=== PATIENT | female | born 1965 | race Caucasian/White ===

== ENCOUNTER 2017-07-17 09:55 | Emergency (ER) | payer MEDICAID ==
[2017-07-17 10:02] VITALS: RESP 18; TEMP 97
[2017-07-17 10:55] VITALS: BP 158/81; PULSE 75
--- NOTE | 2017-07-17 10:55 | ED ---
General Adult HPI - General Chief complaint: Extremity Problem,Nontraumatic Stated complaint: RT KNEE AND CALF PAIN Source: patient, family, RN notes reviewed Mode of arrival: ambulatory Limitations: no limitations - History of Present Illness Initial comments: Chief complaint and history of present illness a 51-year-old female with a complaint of frequent calf spasms and pain. Afraid she might have a DVT. She also has been having discomfort through the right knee. This is been constant no injuries. - Related Data Home Medications Medication Instructions Recorded Confirmed Acetaminophen-Codeine 300-30mg 1 tab PO ONCE PRN 07/17/17 07/17/17 [Tylenol #3] Ibuprofen [Motrin] 200 - 400 mg PO Q6H PRN 07/17/17 07/17/17 Previous Rx's Medication Instructions Recorded Ibuprofen [Motrin] 600 mg PO Q6HR PRN #20 tab 07/17/17 Allergies Allergy/AdvReac Type Severity Reaction Status Date / Time No Known Allergies Allergy Verified 07/17/17 10:32 Review of Systems ROS Statement: Those systems with pertinent positive or pertinent negative responses have been documented in the HPI. Review of systems no complaint of headache chest pain shortness breath GI/ problems. All systems reviewed. Past medical problems significant for tubal ligation. Patient denies history of high blood pressure that was elevated today this will be repeated. Patient states she's been having some arthritic changes. Patient smokes encouraged to stop occasional alcohol use. ROS Other: All systems not noted in ROS Statement are negative. Past Medical History Past Medical History: No Reported History History of Any Multi-Drug Resistant Organisms: None Reported Past Surgical History: Tubal Ligation Past Psychological History: No Psychological Hx Reported Smoking Status: Current every day smoker Past Alcohol Use History: Occasional Past Drug Use History: None Reported General Exam - General Exam Comments Initial Comments: General: The patient is awake and alert, complaining of discomfort to the right knee specifically popliteal area as well as spasms to her calf. Vital signs temp 97.0 pulse 85 respiratory rate 18 pulse ox 99% room air blood pressure initially 175/106 repeated to be 158/81. Eye: Pupils are equal, Neck: The neck is supple, No complaint of chest pain shortness breath GI/ problems. Back: No back pain Musculoskeletal: Negative Homans sign, she does complain discomfort to the right calf and right popliteal region. Knee no pain with varus progress or drawer testing. No swelling noted no bruising noted. Neurovascular status of the foot is intact. Neurological: No neuro deficits Skin: No rash, no bruising. Limitations: no limitations Course Vital Signs 07/17/17 07/17/17 10:00 10:54 Temperature 97.0 F L Pulse Rate 85 75 Respiratory 18 18 Rate Blood Pressure 175/106 158/81 O2 Sat by Pulse 99 96 Oximetry Medical Decision Making - Medical Decision Making X-ray of the right knee was done and reviewed by radiologist's his final impression is no abnormalities evident. As read by Dr. Myers Disposition Clinical Impression: Chronic pain of right knee, Ortega's cyst of knee Disposition: HOME SELF-CARE Condition: Fair Instructions: Naproxen (By mouth), Arthritis (ED), Bakers Cyst (ED) Additional Instructions: Take ibuprofen for pain or Aleve as directed follow with family physician as needed. Prescriptions: Ibuprofen [Motrin] 600 mg PO Q6HR PRN #20 tab PRN Reason: Pain Referrals: None,Stated [Primary Care Provider] - 1-2 days Time of Disposition: 12:01
--- NOTE | 2017-07-17 11:03 | XR ---
Right knee HISTORY: Right knee pain 3 views of the right knee No comparisons Bone mineralization, joint spaces and alignment are maintained. There is no joint effusion. No fractu re or dislocation. IMPRESSION: No abnormalities evident.
--- NOTE | 2017-07-17 12:08 | US ---
EXAMINATION TYPE: US venous doppler duplex LE RT DATE OF EXAM: 07/17/2017 11:51 AM COMPARISON: NONE CLINICAL HISTORY: Pain, right calf, right popliteal area. EC patient with right calf pain x 1 year, w ithout swelling. SIDE PERFORMED: Right TECHNIQUE: The lower extremity deep venous system is examined utilizing real time linear array sonog chetan with graded compression, doppler sonography and color-flow sonography. VESSELS IMAGED: Common Femoral Vein Deep Femoral Vein Greater Saphenous Vein * Femoral Vein Popliteal Vein Small Saphenous Vein * Proximal Calf Veins (* superficial vessels) Right Leg: Echoes are noted at the hallux at mid Right Femoral Vein. Examination is negative for DVT . Right Popliteal Fossa Cyst is seen medially = 2.6 x 2.2 x 0.8cm. IMPRESSION: 1. No sonographic evidence of deep venous thrombosis of the right lower extremity. 2. Incidental note of a 2.6 cm popliteal cyst.
== END 2017-07-17 12:21 | disposition home or self-care (01) ==
LOC: EC 09:55
DX: M25.561 Pain in right knee (principal); G89.29 Other chronic pain; M71.21 Synovial cyst of popliteal space [Baker], right knee; F17.200 Nicotine dependence, unspecified, uncomplicated
CPT/HCPCS: 99284

== ENCOUNTER → 2017-08-16 | Outpatient (CLI) | payer MEDICAID ==
--- NOTE | 2017-08-16 08:47 | MR ---
EXAMINATION TYPE: MR knee RT wo con DATE OF EXAM: 08/16/2017 COMPARISON: NONE HISTORY: Right knee pain TECHNIQUE: Multiplanar, multisequence imaging of the right knee is performed without IV contrast. FINDINGS: MEDIAL MENISCUS: There is a linear tear involving the posterior horn of the medial meniscus. LATERAL MENISCUS: Anterior and posterior horns are intact without tear. CRUCIATE LIGAMENTS: The anterior and posterior cruciate ligaments are intact and unremarkable. COLLATERAL LIGAMENTS: The medial collateral ligament and lateral collateral ligament complex are inta ct and unremarkable. EXTENSOR MECHANISM: Visualized quadriceps and patellar tendons are intact. Edema within the suprapate llar bursa. EFFUSION: No significant suprapatellar joint effusion. POPLITEAL CYST: There is a 1.5 x 1 x 3 cm popliteal fossa cyst. TRICOMPARTMENT SPACES: Mild to moderate narrowing the medial compartment of the knee joint. No erosiv e changes. Grade II chondromalacia medial patellar facet no free fragment. BONE MARROW SIGNAL: No focal abnormal marrow signal is appreciated. IMPRESSION: 1. Osteoarthritis with findings suspicious for linear tear posterior horn medial meniscus. 2. Correlate for fat pad impingement syndrome. 3. 1.5 x 1.0 x 3 cm popliteal cyst.
== END | disposition home or self-care (01) ==
LOC: RADMRIMAIN 07:08
PROVIDERS: ATTEND Orthopaedic Surgery
DX: M17.11 Unilateral primary osteoarthritis, right knee (principal); M71.21 Synovial cyst of popliteal space [Baker], right knee

== ENCOUNTER → 2017-12-06 | Outpatient (CLI) | payer MEDICAID ==
[2017-12-06 11:43] LABS: Basophils # (A) 0.1 k/uL (0-0.2); Basophils % (A) 1 %; Eosinophils # (A) 0.3 k/uL (0-0.7); Eosinophils % (A) 3 %; HCT 47.8 % (34.0-46.0); HGB 15.5 gm/dL (11.4-16.0); Lymphocytes % (A) 20 %; MCH 30.6 pg (25.0-35.0); MCHC 32.4 g/dL (31.0-37.0); MCV 94.5 fL (80.0-100.0); Mean Platelet Volume 6.6; Monocytes # (A) 0.5 k/uL (0-1.0); Monocytes % (A) 5 %; Neutrophils # (A) 6.7 k/uL (1.3-7.7); Neutrophils % (A) 68 %; Platelet Count 338 k/uL (150-450); RBC 5.06 m/uL (3.80-5.40); RDW 13.3 % (11.5-15.5); WBC 9.9 k/uL (3.8-10.6)
[2017-12-06 11:55] LABS: Potassium 4.7 mmol/L (3.5-5.1)
--- NOTE | 2017-12-06 13:13 | XR ---
EXAMINATION TYPE: XR chest 2V DATE OF EXAM: 12/06/2017 COMPARISON: 09/27/2013 HISTORY: 52 year-old female presurgical testing TECHNIQUE: Frontal and lateral views FINDINGS: The cardiomediastinal silhouette, aorta, and pulmonary vasculature are within normal limits. Lungs an d pleural spaces are clear. IMPRESSION: No acute cardiopulmonary process.
== END | disposition home or self-care (01) ==
LOC: RADXRMAIN 10:33
PROVIDERS: ATTEND Orthopaedic Surgery
DX: Z01.818 Encounter for other preprocedural examination (principal); M23.91 Unspecified internal derangement of right knee; Z01.812 Encounter for preprocedural laboratory examination
CPT/HCPCS: 36415; 71046; 80051; 85025; 93005

== ENCOUNTER 2017-12-15 08:29 | Day surgery (SDC) | payer MEDICAID ==
[2017-12-07 14:45] VITALS: BMI 27.3
--- NOTE | 2017-12-14 20:36 | HP ---
HISTORY AND PHYSICAL CHIEF COMPLAINT: Right knee pain. 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 She notes she is having giving way along with diffuse pain. She has some night symptoms. She has tried medications in addition to an injection with only partial and temporary relief. She notes the pain limits her normal function and activities. PAST MEDICAL HISTORY: Significant for asthma. PAST SURGICAL HISTORY: Significant for tubal ligation and cholecystectomy. CURRENT MEDICATIONS: Ibuprofen. ALLERGIES: She denies drug allergies. FAMILY HISTORY: Significant for heart disease. SOCIAL HISTORY: Significant for 1 pack per day tobacco use. 16 POINT REVIEW OF SYSTEMS: Otherwise reviewed and is noncontributory. PHYSICAL EXAMINATION: On examination, the patient is approximately 5 foot 7, 175 pounds of mesomorphic habitus. HEENT exam is nonfocal. Neck is supple. She has painless passive motion of the right hip. Straight leg raise is negative. Active motion right knee -6 to 135 degrees of flexion. She has a mild effusion. She is tender about the medial joint line. Collaterals are stable, Melany's negative, Anastasia's elicits medial pain. Her distal neurovascular appears to be intact in the right lower extremity. MRI report from 08/16/2017 of the right knee shows a posterior medial meniscal tear along with degenerative changes involving medial compartment. IMPRESSION: Right knee internal derangement with symptomatic medial meniscal tear. RECOMMENDATIONS: I talked to the patient at length regarding her treatment options. At this point, she is having persistent pain and mechanical symptoms that limit her normal function and activities despite conservative measures. After thorough discussion, she opts to proceed with surgery. We will plan to proceed with arthroscopic evaluation with probable partial medial meniscectomy. We will likely perform as an outpatient procedure. Risks and benefits were discussed at length in layman's terms. MMODL / IJN: [id number] /
[~2017-12-15 08:29] MED LIST: DEXAMETHASONE SOD PHOSPHATE 10 MG/ML 1 ML VIAL IV ONE; LACTATED RINGERS 1,000 ML IV SCH; MIDAZOLAM 2 MG/2 ML VIAL IV PRN; ONDANSETRON 4 MG/2 ML VIAL IVP ONE; SCOPOLAMINE 1.5MG/72HR PATCH TRANSDERM ONE; ceFAZolin IN SWFI 2 GM/20 ML SYRINGE IVP ONE; fentaNYL (PF) 50 MCG/ML 2 ML AMP IV PRN
[2017-12-15] MEDS ORDERED: SUCCINYLCHOLINE CHLORIDE 100 MG/5 ML SYR IV ONE (10:34)
[2017-12-15] MEDS ORDERED: LIDOCAINE 1% INJ 10MG/ML (20 ML MDV) ONE (10:34)
[2017-12-15] MEDS ORDERED: PROPOFOL 10 MG/ML 20 ML VIAL IV ONE (10:34)
[2017-12-15] MEDS ORDERED: MIDAZOLAM 2 MG/2 ML VIAL ONE (10:34)
[2017-12-15] MEDS ORDERED: fentaNYL (PF) 50 MCG/ML 2 ML AMP ONE (10:34)
--- NOTE | 2017-12-15 11:19 | P.OP ---
Date of Procedure: 12/15/17 Preoperative Diagnosis: Right knee internal derangement Postoperative Diagnosis: Right knee posterior medial meniscal tear/middle one third lateral meniscal tear /grade 3 chondral injury distal lateral portion of the medial femoral condyle Procedure(s) Performed: Right knee arthroscopic partial medial meniscectomy/partial lateral meniscectomy /medial femoral chondrectomy Anesthesia: KATHERINE Surgeon: Wesly Melendez Estimated Blood Loss (ml): 10 Pathology: none sent Condition: stable Disposition: PACU Indications for Procedure: The patient is a 52-year-old female who presents with progressive right knee pain and mechanical symptoms despite conservative measures. A discussion of the risks and benefits of operative intervention versus continued conservative measures was made with patient. She opted to proceed with surgery. Operative risks to include infection, neurovascular injury, development of blood clots, possible incomplete resolution of symptoms, possible worsening symptoms and need for subsequent procedures was discussed. Informed consent was obtained. Operative Findings: As below Description of Procedure: The patient was brought to the operating room, and after induction of general anesthesia examined the right knee. Collaterals were stable, Melany was negative, and posterior drawer was negative. The right lower extremity was prepped and draped in normal fashion. A superior lateral portal was made through a 3 mm skin incision superior and lateral to the patella. This was used for outflow. A lateral portal was made through a 5 mm vertical skin incision lateral to the patella tendon above the joint line. Diagnostic arthroscopy was performed. A medial portal was made through a similar incision medial to the patellar tendon above the joint line. On inspection the medial compartment, a grade 3 chondral injury involving the distal lateral portion of the medial femoral condyle was noted. There was a loose small chondral flap debrided back to stable base with a motorized shaver. An oblique tear involving the posterior most aspect of the medial meniscus was noted in the white-white junction. This was debrided back to a stable base with straight baskets. The remainder of the medial meniscus was stable and intact. On inspection of the notch, the anterior cruciate ligament appeared to be intact. On inspection of the lateral compartment, a radial tear involving the middle one third of the lateral meniscus in the white-white junction was noted. This was debrided back to a stable base with straight baskets and a motorized shaver. The remainder of the lateral meniscus was stable and intact. On inspection patellofemoral articulation, there was some mild fibrillation however no loose chondral fragments. The gutters were clear debris. The knee was then thoroughly irrigated. The portals were closed with Steri-Strips. A sterile dressing was applied in addition to a compression stocking. The patient was awoken from general anesthesia and transferred to recovery room in good condition. Blood loss was estimated at 10 mL. No complications were incurred.
[2017-12-15 11:30] VITALS: TEMP 97.5
[2017-12-15 12:09] VITALS: RESP 18
[2017-12-15 12:20] VITALS: BP 135/70; PULSE 67
== END 2017-12-15 12:32 | disposition home or self-care (01) ==
LOC: OR 08:29
PROVIDERS: ATTEND Orthopaedic Surgery
DX: M23.321 Other meniscus derangements, posterior horn of medial meniscus, right knee (principal); M23.41 Loose body in knee, right knee; J45.909 Unspecified asthma, uncomplicated; M23.300 Other meniscus derangements, unspecified lateral meniscus, right knee; Z88.5 Allergy status to narcotic agent; Z72.0 Tobacco use; Z79.1 Long term (current) use of non-steroidal anti-inflammatories (NSAID)
CPT/HCPCS: 29880; J2250; J1100; J2405; J2001; J3010; J0330; J2704; J0690

== ENCOUNTER 2019-02-07 10:10 | Emergency (ER) | payer MEDICAID, OTHER ==
[2019-02-07 10:14] VITALS: RESP 18; TEMP 97.8
[2019-02-07 10:49] LABS: Basophils % (A) 0 %; Eosinophils # (A) 0.2 k/uL (0-0.7); Eosinophils % (A) 2 %; HCT 46.7 % (34.0-46.0); HGB 15.5 gm/dL (11.4-16.0); Lymphocytes # (A) 2.3 k/uL (1.0-4.8); Lymphocytes % (A) 26 %; MCHC 33.1 g/dL (31.0-37.0); MCV 90.6 fL (80.0-100.0); Mean Platelet Volume 7.2; Monocytes # (A) 0.4 k/uL (0-1.0); Monocytes % (A) 5 %; Neutrophils # (A) 5.5 k/uL (1.3-7.7); Neutrophils % (A) 64 %; Platelet Count 359 k/uL (150-450); RBC 5.15 m/uL (3.80-5.40); RDW 13.8 % (11.5-15.5); WBC 8.6 k/uL (3.8-10.6)
--- NOTE | 2019-02-07 10:51 | XR ---
EXAMINATION TYPE: XR chest 2V DATE OF EXAM: 02/07/2019 COMPARISON: Chest x-ray December 06, 2017. HISTORY: History of hypertension with chest pressure and pain for one day. TECHNIQUE: Frontal and lateral views of the chest are obtained. FINDINGS: Overlying EKG leads are seen. There is no focal air space opacity, pleural effusion, or pn eumothorax seen. The cardiac silhouette size is within normal limits. The osseous structures are i ntact. IMPRESSION: No acute process. No significant change from prior.
[2019-02-07 11:00] LABS: ALT 28 U/L (9-52); AST 23 U/L (14-36); Albumin 4.8 g/dL (3.5-5.0); Alkaline Phosphatase 59 U/L (38-126); Anion Gap 9 mmol/L; Blood Urea Nitrogen 12 mg/dL (7-17); Carbon Dioxide 26 mmol/L (22-30); Chloride 106 mmol/L (98-107); Glucose 101 mg/dL (74-99); Lipase 98 U/L (23-300); Magnesium 2.1 mg/dL (1.6-2.3); Potassium 4.3 mmol/L (3.5-5.1); Sodium 141 mmol/L (137-145); Total Bilirubin 0.4 mg/dL (0.2-1.3); Total Protein 8.1 g/dL (6.3-8.2)
[2019-02-07 11:01] LABS: D-Dimer 0.36 mg/L FEU (<0.60); INR 0.9 (<1.2); Prothrombin Time 9.6 sec (9.0-12.0)
[2019-02-07] MEDS ORDERED: SODIUM CHLORIDE 0.9% 1,000 ML IV ONE (11:18)
[2019-02-07] MEDS ORDERED: FAMOTIDINE 20 MG/2 ML VIAL IV STA (11:18)
--- NOTE | 2019-02-07 11:29 | ED ---
General Adult HPI - General Chief complaint: Chest Pain Stated complaint: chest pain Time Seen by Provider: 02/07/19 10:19 Source: patient, RN notes reviewed, old records reviewed Mode of arrival: wheelchair Limitations: no limitations - History of Present Illness Initial comments: 53-year-old female presenting for evaluation of central chest pain. Patient describes pain as dull, center of her chest radiating to the middle of her back. She has no previous history of coronary artery disease, she does have history of elevated blood pressure in the past but is not currently on treatment. She is a current smoker. Denies any extremity pain. Denies nausea vomiting or diaphoresis. She has previous history of gastric reflux status post Emy fund oplication. - Related Data Previous Rx's Medication Instructions Recorded amLODIPine BESYLATE [Norvasc] 5 mg PO DAILY #30 tablet 02/07/19 Allergies Allergy/AdvReac Type Severity Reaction Status Date / Time hydromorphone [From Dilaudid] AdvReac very red Verified 02/07/19 11:12 face Review of Systems ROS Statement: Those systems with pertinent positive or pertinent negative responses have been documented in the HPI. ROS Other: All systems not noted in ROS Statement are negative. Past Medical History Past Medical History: Hypertension History of Any Multi-Drug Resistant Organisms: None Reported Past Surgical History: Cholecystectomy, Tubal Ligation Additional Past Surgical History / Comment(s): Edgar procedure Past Psychological History: No Psychological Hx Reported Smoking Status: Current every day smoker Past Alcohol Use History: Occasional Past Drug Use History: None Reported General Exam Limitations: no limitations General appearance: alert, in no apparent distress Head exam: Present: atraumatic, normocephalic Eye exam: Present: normal appearance, PERRL, EOMI ENT exam: Present: normal exam Neck exam: Present: normal inspection. Absent: tenderness, meningismus Respiratory exam: Present: normal lung sounds bilaterally. Absent: respiratory distress, wheezes Cardiovascular Exam: Present: regular rate, normal rhythm GI/Abdominal exam: Present: soft. Absent: distended, tenderness Extremities exam: Present: normal inspection, normal capillary refill, other (2+ posterior tibial pulses bilaterally, 2+ radial pulses bilaterally). Absent: p edal edema, calf tenderness Neurological exam: Present: alert, oriented X3, CN II-XII intact. Absent: motor sensory deficit Psychiatric exam: Present: normal affect, normal mood Skin exam: Present: warm, dry, intact. Absent: cyanosis, diaphoretic Course Vital Signs 02/07/19 02/07/19 02/07/19 10:12 10:27 10:59 Temperature 97.8 F Pulse Rate 85 77 Respiratory 18 18 Rate Blood Pressure 182/125 181/104 164/100 O2 Sat by Pulse 99 96 Oximetry EKG Findings - EKG Comments: EKG Findings:: EKG: Normal sinus rhythm, possible left atrial enlargement, no ST segment elevation or depression, T waves are upright, rate of 75, AK interval 148, QRS duration 92, QTC 444. Medical Decision Making - Medical Decision Making 53-year-old female presenting with central chest pain, radiating to her back. EKG is negative for ST segment elevation, patient's symptoms 7 present for between 12 and 24 hours. She is a current smoker, hypertensive on initial evaluation. Patient has normal CBC, normal CMP, troponin is negative. CT angiography is obtained, this is negative for dissection, no aortic or abdominal pathology. Given the patient's age and risk factors, I would prefer the patient stay in observation for serial troponins, telemetry, cardiology consultation. Patient declines, prefers outpatient workup. Blood pressure was quite elevated emergency department, will be started on Norvasc, she will keep a long blood pressure so she could follow up with her primary care physician. - Lab Data Result diagrams: 02/07/19 10:23 02/07/19 10:23 Lab Results 02/07/19 02/07/19 02/07/19 Range/Units 10:23 10:23 10:23 WBC 8.6 (3.8-10.6) k/uL RBC 5.15 (3.80-5.40) m/uL Hgb 15.5 (11.4-16.0) gm/dL Hct 46.7 H (34.0-46.0) % MCV 90.6 (80.0-100.0) fL MCH 30.0 (25.0-35.0) pg MCHC 33.1 (31.0-37.0) g/dL RDW 13.8 (11.5-15.5) % Plt Count 359 (150-450) k/uL Neutrophils % 64 % Lymphocytes % 26 % Monocytes % 5 % Eosinophils % 2 % Basophils % 0 % Neutrophils # 5.5 (1.3-7.7) k/uL Lymphocytes # 2.3 (1.0-4.8) k/uL Monocytes # 0.4 (0-1.0) k/uL Eosinophils # 0.2 (0-0.7) k/uL Basophils # 0.0 (0-0.2) k/uL PT 9.6 (9.0-12.0) sec INR 0.9 (<1.2) APTT 26.0 (22.0-30.0) sec D-Dimer 0.36 (<0.60) mg/L FEU Sodium 141 (137-145) mmol/L Potassium 4.3 (3.5-5.1) mmol/L Chloride 106 (98-107) mmol/L Carbon Dioxide 26 (22-30) mmol/L Anion Gap 9 mmol/L BUN 12 (7-17) mg/dL Creatinine 0.55 (0.52-1.04) mg/dL Est GFR (CKD-EPI)AfAm >90 (>60 ml/min/1.73 sqM) Est GFR (CKD-EPI)NonAf >90 (>60 ml/min/1.73 sqM) Glucose 101 H (74-99) mg/dL Calcium 10.0 (8.4-10.2) mg/dL Magnesium 2.1 (1.6-2.3) mg/dL Total Bilirubin 0.4 (0.2-1.3) mg/dL AST 23 (14-36) U/L ALT 28 (9-52) U/L Alkaline Phosphatase 59 (38-126) U/L Troponin I (0.000-0.034) ng/mL NT-Pro-B Natriuret Pep pg/mL Total Protein 8.1 (6.3-8.2) g/dL Albumin 4.8 (3.5-5.0) g/dL Lipase 98 (23-300) U/L 02/07/19 02/07/19 Range/Units 10:23 10:23 WBC (3.8-10.6) k/uL RBC (3.80-5.40) m/uL Hgb (11.4-16.0) gm/dL Hct (34.0-46.0) % MCV (80.0-100.0) fL MCH (25.0-35.0) pg MCHC (31.0-37.0) g/dL RDW (11.5-15.5) % Plt Count (150-450) k/uL Neutrophils % % Lymphocytes % % Monocytes % % Eosinophils % % Basophils % % Neutrophils # (1.3-7.7) k/uL Lymphocytes # (1.0-4.8) k/uL Monocytes # (0-1.0) k/uL Eosinophils # (0-0.7) k/uL Basophils # (0-0.2) k/uL PT (9.0-12.0) sec INR (<1.2) APTT (22.0-30.0) sec D-Dimer (<0.60) mg/L FEU Sodium (137-145) mmol/L Potassium (3.5-5.1) mmol/L Chloride (98-107) mmol/L Carbon Dioxide (22-30) mmol/L Anion Gap mmol/L BUN (7-17) mg/dL Creatinine (0.52-1.04) mg/dL Est GFR (CKD-EPI)AfAm (>60 ml/min/1.73 sqM) Est GFR (CKD-EPI)NonAf (>60 ml/min/1.73 sqM) Glucose (74-99) mg/dL Calcium (8.4-10.2) mg/dL Magnesium (1.6-2.3) mg/dL Total Bilirubin (0.2-1.3) mg/dL AST (14-36) U/L ALT (9-52) U/L Alkaline Phosphatase (38-126) U/L Troponin I <0.012 (0.000-0.034) ng/mL NT-Pro-B Natriuret Pep 81 pg/mL Total Protein (6.3-8.2) g/dL Albumin (3.5-5.0) g/dL Lipase (23-300) U/L Disposition Clinical Impression: Chest pain, Hypertension Disposition: HOME SELF-CARE Instructions (If sedation given, give patient instructions): Chest Pain (ED), Hypertension (ED) Prescriptions: amLODIPine BESYLATE [Norvasc] 5 mg PO DAILY #30 tablet Is patient prescribed a controlled substance at d/c from ED?: No Referrals: None,Stated [Primary Care Provider] - 1-2 days Lissy Weiner MD [STAFF PHYSICIAN] - 1-2 days Time of Disposition: 12:43
--- NOTE | 2019-02-07 12:28 | CT ---
EXAMINATION TYPE: CT angio thor/abd pel aorta DATE OF EXAM: 02/07/2019 COMPARISON: Chest x-ray same date HISTORY: Chest pain CT DLP: 1353.2 mGycm. Automated Exposure Control for Dose Reduction was Utilized. CONTRAST: CT scan of the thorax, abdomen and pelvis is performed without and with IV Contrast, patient injected with 100 mL of Isovue 370. Three-dimensional reconstructions performed on an alternate workstation. FINDINGS: LUNGS: The lungs are grossly clear, there is no concerning parenchymal mass or nodule identified. T here is no pleural effusion or pneumothorax seen. The tracheobronchial tree is patent. MEDIASTINUM: There are no greater than 1 cm hilar or mediastinal lymph nodes. No pericardial effusi on is seen. Pulmonary arteries enhance unremarkably, there is no evident embolism. Aorta shows normal caliber, there is no evident dissection. Mild atheromatous changes are present. 3 super aortic branch vessels are patent. Proximal vertebral arteries, left and right subclavian arteri es, innominate artery, proximal left and right common carotid arteries are patent. Superior mesenteri c artery, celiac axis, renal arteries, inferior mesenteric artery are patent. Common iliac, proximal internal and external iliac arteries are patent. Superficial femoral, proximal deep and superficial f emoral arteries are patent. LIVER/GB: The liver is enlarged and shows low attenuation suggesting possible hepatic steatosis. Gall bladder has been surgically removed. PANCREAS: No significant abnormality is seen. SPLEEN: No significant abnormality is seen. ADRENALS: No significant abnormality is seen. KIDNEYS: No significant abnormality is seen. BOWEL: No significant abnormality is seen. GENITAL ORGANS: No gross abnormality seen. LYMPH NODES: No greater than 1cm abdominal or pelvic lymph nodes are appreciated. OSSEOUS STRUCTURES: No significant abnormality is seen. Postop changes are noted at the gastroesophageal junction. IMPRESSION: There is no aortic aneurysm or aortic dissection. No acute osseous fracture, abnormal flu id collection, or evidence of solid organ injury in the thorax, abdomen, or pelvis. Hepatomegaly, co rrelate for hepatic steatosis.
[2019-02-07 13:06] VITALS: BP 163/99; PULSE 79
== END 2019-02-07 13:09 | disposition home or self-care (01) ==
LOC: EC 10:10
DX: R07.9 Chest pain, unspecified (principal); I10 Essential (primary) hypertension; F17.200 Nicotine dependence, unspecified, uncomplicated; Z88.5 Allergy status to narcotic agent
CPT/HCPCS: 36415; 93005; 85379; 83880; 80053; 83690; 83735; 84484; 85025; 85610; 85730; 71046; 71275; 74174; 99285; 96374; 96361; Q9967

== ENCOUNTER → 2021-11-22 | Outpatient (CLI) | payer BC ==
--- NOTE | 2021-11-22 12:18 | XR ---
EXAMINATION TYPE: XR chest 2V DATE OF EXAM: 11/22/2021 COMPARISON: 02/07/2019 INDICATION: Short of breath TECHNIQUE: Frontal and lateral views of the chest are obtained. FINDINGS: The heart size is normal. The pulmonary vasculature is normal. The lungs are clear. IMPRESSION: 1. No acute pulmonary process.
== END | disposition home or self-care (01) ==
LOC: RADXRMAIN 11:09
PROVIDERS: ATTEND Internal Medicine
DX: R06.02 Shortness of breath (principal)
CPT/HCPCS: 71046

== ENCOUNTER 2022-10-21 15:14 | Emergency (ER) | payer BC ==
[2022-10-21 15:22] VITALS: TEMP 97.5
[2022-10-21 15:39] LABS: Basophils % (A) 0 %; Eosinophils # (A) 0.2 k/uL (0-0.7); Eosinophils % (A) 3 %; HGB 13.9 gm/dL (11.4-16.0); Lymphocytes % (A) 30 %; MCH 31.9 pg (25.0-35.0); MCHC 34.6 g/dL (31.0-37.0); MCV 92.2 fL (80.0-100.0); Mean Platelet Volume 7.4; Monocytes # (A) 0.4 k/uL (0-1.0); Monocytes % (A) 6 %; Neutrophils % (A) 58 %; Platelet Count 292 k/uL (150-450); RBC 4.34 m/uL (3.80-5.40); RDW 12.6 % (11.5-15.5); WBC 6.8 k/uL (3.8-10.6)
[2022-10-21 15:49] LABS: ALT 18 U/L (4-34); AST 18 U/L (14-36); African American GFR (CKD) >90 (>60 ml/min/1.73 sqM); Albumin 4.2 g/dL (3.5-5.0); Alkaline Phosphatase 56 U/L (38-126); Anion Gap 5 mmol/L; Blood Urea Nitrogen 23 mg/dL (7-17); Carbon Dioxide 22 mmol/L (22-30); Chloride 111 mmol/L (98-107); Glucose 109 mg/dL (74-99); Non-African American GFR(CKD) 89 (>60 ml/min/1.73 sqM); Potassium 4.1 mmol/L (3.5-5.1); Sodium 138 mmol/L (137-145); Total Bilirubin 0.2 mg/dL (0.2-1.3); Total Protein 6.9 g/dL (6.3-8.2)
[2022-10-21 15:58] LABS: INR 0.9 (<1.2); Partial Thromboplastin Time 24.6 sec (22.0-30.0); Prothrombin Time 9.7 sec (9.0-12.0)
[2022-10-21] MEDS ORDERED: ASPIRIN 81 MG PO STA (18:04)
[2022-10-21] MEDS ORDERED: METOPROLOL TARTRATE 25 MG TAB PO STA (18:04)
[2022-10-21 18:50] VITALS: BP 145/90; PULSE 90; RESP 18
--- NOTE | 2022-10-21 19:15 | XR ---
EXAMINATION TYPE: XR chest 2V DATE OF EXAM: 10/21/2022 6:23 PM COMPARISON: Chest radiographs from 11/22/2021 TECHNIQUE: XR chest 2V medial. CLINICAL INDICATION:Female, 57 years old with history of chest pain; FINDINGS: Lungs/Pleura: There is no evidence of pleural effusion, focal consolidation, or pneumothorax. Pulmonary vascularity: Unremarkable. Heart/mediastinum: Cardiomediastinal silhouette is unremarkable. Musculoskeletal: No acute osseous pathology. IMPRESSION: No acute cardiopulmonary disease/process.
--- NOTE | 2022-10-21 19:16 | ED ---
Chest Pain HPI - General Chief Complaint: Chest Pain Stated Complaint: Chest pain Time Seen by Provider: 10/21/22 17:56 Source: patient Mode of arrival: ambulatory - History of Present Illness Initial Comments: This patient is a 57-year-old woman who presents to have evaluation for chest pain and hypertension. The patient states she has been having higher blood pressures than usual going back for almost 2-3 days. She states that the blood pressure today reached 200/120. The patient states that the sensation the chest is is uncomfortable. She has a hard time characterizing it. Sometimes it feels like it is in the chest. Sometimes it feels like it is in the back. She has not noted any coming symptoms. She did try taking additional doses of the losartan 50 mg that she takes. MD Complaint: chest pain -: days(s) Onset: during rest Pain Location: substernal Pain Radiation: back Severity: mild Quality: dull Consistency: intermittent Improves With: nothing Worsens With: nothing Treatments Prior to Arrival: other (Antihypertensive) - Related Data Previous Rx's Medication Instructions Recorded amLODIPine BESYLATE [Norvasc] 5 mg PO DAILY #30 tablet 02/07/19 Metoprolol Tartrate [Lopressor] 25 mg PO BID #20 tablet 10/21/22 Allergies Allergy/AdvReac Type Severity Reaction Status Date / Time hydromorphone [From Dilaudid] AdvReac very red Verified 10/21/22 15:21 face Review of Systems ROS Statement: Those systems with pertinent positive or pertinent negative responses have been documented in the HPI. ROS Other: All systems not noted in ROS Statement are negative. Constitutional: Denies: fever, chills Respiratory: Denies: cough, dyspnea Cardiovascular: Reports: chest pain. Denies: palpitations, edema, syncope Gastrointestinal: Denies: abdominal pain, nausea, vomiting Genitourinary: Denies: dysuria, frequency, hematuria Musculoskeletal: Denies: back pain Skin: Denies: rash Neurological: Denies: headache, weakness Past Medical History Past Medical History: Hypertension History of Any Multi-Drug Resistant Organisms: None Reported Past Surgical History: Cholecystectomy, Tubal Ligation Additional Past Surgical History / Comment(s): Edgar procedure Past Psychological History: No Psychological Hx Reported Smoking Status: Current every day smoker Past Alcohol Use History: Occasional Past Drug Use History: None Reported General Exam General appearance: alert, in no apparent distress Head exam: Present: atraumatic, normocephalic Eye exam: Present: normal appearance. Absent: scleral icterus, conjunctival injection ENT exam: Present: normal oropharynx Neck exam: Present: normal inspection Respiratory exam: Present: normal lung sounds bilaterally. Absent: respiratory distress, wheezes, rales, rhonchi, stridor Cardiovascular Exam: Present: regular rate, normal rhythm, normal heart sounds. Absent: systolic murmur, diastolic murmur, rubs, gallop GI/Abdominal exam: Present: soft. Absent: distended, tenderness, guarding, rebound, rigid, mass Extremities exam: Present: normal inspection, normal capillary refill. Absent: pedal edema, calf tenderness Back exam: Present: normal inspection. Absent: CVA tenderness (R), CVA tenderness (L) Neurological exam: Present: alert Skin exam: Present: warm, dry, intact, normal color. Absent: rash Course Vital Signs 10/21/22 10/21/22 10/21/22 15:19 18:29 18:49 Temperature 97.5 F L Pulse Rate 92 90 Respiratory 16 12 18 Rate Blood Pressure 166/92 145/90 O2 Sat by Pulse 100 98 Oximetry Chest Pain MDM - [facility] Patient's 57-year-old woman having some intermittent chest and back discomfort and noticing her blood pressure is high going back almost 3 days now. She has had improvement in her blood pressure after metoprolol. She is not having any further symptoms. The workup here is negative. I did offer admission to have cardiology see the patient but she would much rather follow as outpatient. Given the duration of symptoms will discharge patient without the customary second troponin as the symptoms have been going on nearly 3 days now. She will return should any symptoms recur. She is also counseled to stop smoking. Disposition Clinical Impression: Hypertension Disposition: HOME SELF-CARE Condition: Good Instructions (If sedation given, give patient instructions): Chest Pain (ED), Hypertension (ED) Prescriptions: Metoprolol Tartrate [Lopressor] 25 mg PO BID #20 tablet Is patient prescribed a controlled substance at d/c from ED?: No Referrals: None,Stated [Primary Care Provider] - 1-2 days Eric Newell MD [STAFF PHYSICIAN] - 1-2 days Time of Disposition: 19:12
== END 2022-10-21 19:40 | disposition home or self-care (01) ==
LOC: EC 15:14
DX: I10 Essential (primary) hypertension (principal); F17.200 Nicotine dependence, unspecified, uncomplicated; Z88.5 Allergy status to narcotic agent
CPT/HCPCS: 36415; 71046; 80053; 84484; 85025; 85379; 85610; 85730; 93005; 99285

== ENCOUNTER → 2022-11-07 | Outpatient (CLI) | payer BC ==
[2022-11-07 14:44] LABS: ALT 18 U/L (8-44); AST 17 U/L (13-35); Chol/HDL Ratio 2.49 Ratio; LDL Cholesterol,Calculated 103.2 mg/dL (0.0-131.0)
== END | disposition home or self-care (01) ==
LOC: LABWHC1 10:49
PROVIDERS: ATTEND Internal Medicine Cardiovascular Disease
DX: E78.2 Mixed hyperlipidemia (principal)
CPT/HCPCS: 36415; 80061; 84450; 84460

== ENCOUNTER → 2024-11-29 | Outpatient (CLI) | payer BC ==
[2024-11-29 10:05] LABS: Appearance,Urine Clear (Clear); Bilirubin,Urine Negative (Negative); Blood,Urine Negative (Negative); Color,Urine Yellow (Yellow); Ketones,Urine Negative (Negative); Nitrite,Urine Negative (Negative); PH, Urine 5.5; Specific Gravity,Urine 1.017 (1.001-1.030); Urobilinogen,Urine 0.2 E.U./DL
[2024-11-29 10:11] LABS: Bacteria,Urine 3+ (None Seen)
[2024-11-29 10:13] LABS: Basophils # (A) 0.05 X 10*3/uL (0.00-0.10); Basophils % (A) 0.7 %; Eosinophils # (A) 0.66 X 10*3/uL (0.04-0.35); Eosinophils % (A) 8.7 %; HCT 43.7 % (37.2-46.3); HGB 14.3 g/dL (12.0-15.0); Lymphocytes # (A) 2.21 X 10*3/uL (0.90-5.00); MCHC 32.7 g/dL (32.0-37.0); MCV 91.6 FL (80.0-97.0); Mean Platelet Volume 9.7 FL (9.5-12.2); Monocytes % (A) 7.9 %; NRBC Per 100 WBC 0 X 10*3/uL (0.00-0.01); Neutrophils # (A) 4.07 X 10*3/uL (1.80-7.70); Neutrophils % (A) 53.4 %; Platelet Count 380 X 10*3/uL (140-440); RBC 4.77 X 10*6/uL (4.10-5.20); RDW 13.3 % (11.5-14.5); WBC 7.61 X 10*3/uL (4.50-10.00)
[2024-11-29 10:42] LABS: Creatine Kinase 56 U/L (26-186)
[2024-11-29 10:43] LABS: ALT 22 U/L (8-44); AST 19 U/L (13-35); Albumin 4.3 g/dL (3.8-4.9); Albumin/Globulin Ratio 1.59 Ratio (1.60-3.17); Alkaline Phosphatase 58 U/L (41-126); Blood Urea Nitrogen 12.3 mg/dL (9.0-27.0); Calcium 9.3 mg/dL (8.7-10.3); Carbon Dioxide 24.9 mmol/L (21.6-31.8); Chloride 104 mmol/L (96-109); Globulin 2.7 g/dL (1.6-3.3); Glucose 99 mg/dL (70-110); LDL Cholesterol,Calculated 116.1 mg/dL (0.0-131.0); Potassium 4.5 mmol/L (3.5-5.5); Sodium 139 mmol/L (135-145); Total Bilirubin 0.2 mg/dL (0.3-1.2); VLDL Calculation 18.86 mg/dL (5.00-40.00)
== END | disposition home or self-care (01) ==
LOC: LABWHC1 06:50
PROVIDERS: ATTEND Internal Medicine
DX: I10 Essential (primary) hypertension (principal); E78.2 Mixed hyperlipidemia; J44.9 Chronic obstructive pulmonary disease, unspecified; L80 Vitiligo
CPT/HCPCS: 36415; 80053; 80061; 81001; 82306; 82550; 83036; 83735; 84443; 84550; 85025